=== PATIENT | female | born 2000 | race Caucasian/White ===

== ENCOUNTER → 2023-04-09 01:58 | Outpatient (CLI) | payer BC, SELFPAY ==
--- NOTE | 2023-04-09 06:45 | DI.RAD_ITS ---
Exam(s) XR HAND LT COMPLETE EXAM: XR HAND LT COMPLETE CLINICAL HISTORY: PIP pain lt middle finger/swelling, ?overuse,[id number]. TECHNIQUE: 2D digital imaging was performed. COMPARISON: No exams were available for comparison FINDINGS: 3 views No evidence of fracture or dislocation. Bone density normal. No osseous lesions nor erosions. No d egenerative changes. No radiopaque foreign body. IMPRESSION: No significant osseous findings in the hand. DATA REPOSITORY: RADIATION DOSE DELIVERED:
== END ==
PROVIDERS: PCP Nurse Practitioner Family; Visit Provider Nurse Practitioner Family
DX: M79.645 Pain in left finger(s) (principal)
CPT/HCPCS: 73130

== ENCOUNTER 2023-06-02 10:42 | Outpatient (REF) | payer BC, SELFPAY ==
--- NOTE | 2023-06-02 09:20 | PAPFT_PTH ---
PATIENT: Torie Thompson LOC: [facility] U#:[id number] AGE/SX: 22/F ROOM: RE06/02/[address]: Marques Burdick DNP : 2000 BED: DIS: 06/02/2023 SPEC #: [id number] RECD: 06/02/23 12:35 STATUS: WAYNE REQ #: [id number] MUKUND: 06/02/23 09:[address]: Marques Solo DEPT: [facility], [facility] Cytology RECD BY: Lorri Noyola Tissues: 1 - CX/ENDOCX FOR PAP SMEARS Procedures: PAP THIN PREP/[facility] Screening Comments: [id number]
== END 2023-06-02 10:43 | disposition home or self-care (01) ==
LOC: LBN 10:42
PROVIDERS: PCP Nurse Practitioner Family; Visit Provider Nurse Practitioner Family
DX: Z12.4 Encounter for screening for malignant neoplasm of cervix (principal)
CPT/HCPCS: 88142